=== PATIENT | male | born 1950 | race Caucasian/White ===

== ENCOUNTER 2023-06-30 07:19 | Outpatient (CLI) | payer MEDICARE, SELFPAY ==
--- NOTE | 2023-06-30 07:36 | ECHO_ITS ---
Patient Info Name: Tin Marshall Age: 72 years : 1950 Gender: Male Ht: 67 in Wt: 195 lbs BSA: 2.07 m2 HR: 72 bpm BP: 127 / 71 mmHg Technical Quality: Fair Exam Date: 06/30/2023 7:46 AM Exam Location: Echo Lab Patient Status: Outpatient Admit Date: 06/30/2023 Staff Ordering Physician: Cornel Pierson DO Attending Provider: Cornel Pierson DO Referring Physician: Dangelo CHARLES; Exam Type: CA echo doppler color flow Study Info Indications - CAD Complete two-dimensional, color flow and Doppler transthoracic echocardiogram is performed. Summary 1. Complete two-dimensional, color flow and Doppler transthoracic echocardiogram is performed. 2. Left ventricular chamber dimension is normal. 3. Left ventricular systolic function is normal, estimated at 60-65%. 4. The left ventricular diastolic function is grade I diastolic dysfunction. 5. E/e' 9 is minimally elevated. 6. There is mild aortic valve sclerosis. Left Ventricle E/e' 9 is minimally elevated. Left ventricular chamber dimension is normal. Left ventricular systolic function is normal, estimated at 60-65%. The left ventricular diastolic function is grade I diastolic dysfunction. Right Ventricle Right ventricular systolic function is normal and with normal TAPSE 2.4 cm. Right ventricular chamber dimension is normal. Left Atria Left atrial chamber dimension is normal. Right Atria Right atrial chamber dimension is normal. Aortic Valve The aortic valve is trileaflet. There is mild aortic valve sclerosis. There is no aortic valve stenosis. There is no aortic valve regurgitation. Pulmonic Valve There is no pulmonic regurgitation. Mitral Valve There is no mitral valve stenosis. There is no mitral valve regurgitation. Tricuspid Valve There is no tricuspid valve regurgitation. Pericardium/Pleural There is no pericardial effusion. Inferior Vena Cava Normal inferior vena cava with >50% collapse upon inspiration consistent with normal right atrial pressure, 5 mmHg. Aorta The aortic root size at the sinus of Valsalva is normal. Left Ventricular Outflow Tract Name Value Normal LVOT 2D LVOT Diameter 2.2 cm LVOT Doppler LVOT Peak Gradient 6 mmHg LVOT Mean Gradient 2 mmHg LVOT VTI 21 cm LVOT VTI/AV VTI Ratio 0.8 LVOT Stroke Volume 81 ml LVOT CO 5.6 l/min LVOT CI 2.7 l/min/m2 Pulmonic Valve Name Value Normal PV Doppler PV Peak Gradient 5 mmHg Mitral Valve Name Value Normal MV Doppler MV Peak Gradient
== END 2023-06-30 07:20 | disposition home or self-care (01) ==
LOC: ANHCARD 07:22
PROVIDERS: PCP Family Medicine; Visit Provider Internal Medicine Cardiovascular Disease
DX: I25.10 Atherosclerotic heart disease of native coronary artery without angina pectoris (principal); R93.1 Abnormal findings on diagnostic imaging of heart and coronary circulation; I35.8 Other nonrheumatic aortic valve disorders
CPT/HCPCS: 93306

== ENCOUNTER 2023-10-21 03:12 | Day surgery (SDC) | payer MEDICARE, SELFPAY ==
[2023-10-12 11:14] VITALS: BMI 29.5
[2023-10-21 09:11] VITALS: BP 129/71; PULSE 74; RESP 18; TEMP 36; O2SAT 99; BMI 29.6
[2023-10-21] MEDS: LACTATED RINGERS 1,000 ML 150 ML IV CONT (09:21)
[2023-10-21 09:24] LABS: Glucose Point of Care 188 mg/dl (65-105)
--- NOTE | 2023-10-21 09:51 | PM.HPGS ---
History of Present Illness History of Present Illness Consent: Risks, benefits, and alternatives have been discussed and questions answered. Patient agrees to proceed with procedure. Chief complaint: hx of colon polyps Narrative: Tin Marshall is a 73 year old male with colon polyps 9 years ago Review of Systems Review of Systems: All systems reviewed & are unremarkable except as noted in HPI and below [facility] Past Medical History Medical History (Updated 08/28/23 @ 10:01 by Rafa Del Castillo MD) Abdominal distension Acute non-recurrent maxillary sinusitis At low risk for fall At moderate risk for fall (~12/30/21) the patient fell off of a deck while prying up a board, Oct, 2021. BMI 29.0-29.9,adult BMI 30.0-30.9,adult BMI 31.0-31.9,adult COVID-19 (~06/08/22) tested positive 06/10/2022. 2nd episode positive 06/17/2023. Depression Diarrhea Dysphagia Emphysema lung (~07/30/20) noted on coronary artery CT scan 07/30/2020 Encounter for prostate cancer screening PSA 0.39 on 01/22/2023. Essential (primary) hypertension Fungal nail infection (12/11/20) great toenail bilateral GERD (gastroesophageal reflux disease) Grade I diastolic dysfunction (06/30/23) grade 1 diastolic dysfunction on echo on 06/30/2023. Ejection fraction 60-65%. Gustatory rhinitis Kyphoscoliosis deformity of spine Night sweats Obesity (BMI 30.0-34.9) Overweight (BMI 25.0-29.9) Peripheral arterial disease with history of revascularization Pulmonary nodule less than 1 cm in diameter with low risk for malignant neoplasm (07/30/20) Skin tag (~12/30/21) multiple skin tags about the neck irritated by clothing. Thoracic lymphadenopathy (~07/30/20) 1.4 cm samantha aortic node right lung Tobacco use disorder, continuous quit smoking December,. Visual disturbance changes in vision left eye with floaters Family History Family History Grandparent Family history of cardiovascular disease, Onset Age: 76 Father Acute myocardial infarction, Onset Age: 54 Mother Family history of malignant neoplasm Social History Social History Years smoked: 55 Smoking status: Former smoker Tobacco type: cigarettes Smoking end date: 12/20/21 Alcohol intake: never Substance use: former Substance use type: marijuana Lack of Transportation: No Lack of Food: Never True Current Housing: I Have Housing Concerned About Future Housing: No Difficulty Paying Gas/Electric Bills: No Difficulty Paying for Meds: No Currently Unemployed: No Education: Don't Know Difficulty w/ Childcare or Family Care: No Living arrangements: with family Spiritual care concerns: No Meds Home Medications and Allergies Home Medications Medication Instructions Recorded Confirmed Type aspirin 81 mg tablet,delayed 81 mg PO DAILY 04/29/19 10/21/23 History release (Adult Aspirin Regimen) cyanocobalamin (vitamin B-12) 1,000 mcg PO DAILY 04/29/19 10/21/23 History 1,000 mcg capsule rosuvastatin 20 mg tablet (Crestor) 20 mg PO DAILY 09/05/19 10/21/23 History coenzyme Q10 200 mg capsule 200 mg PO BID 02/21/20 10/21/23 History isosorbide mononitrate 60 mg 60 mg PO . b.i.d. 01/26/23 10/21/23 History tablet,extended release 24 hr carvedilol 6.25 mg tablet 6.25 mg PO BID #180 tabs 04/15/23 10/21/23 Rx clopidogrel 75 mg tablet 75 mg PO DAILY #90 tabs 04/15/23 10/21/23 Rx fenofibrate nanocrystallized 145 145 mg PO DAILY #90 tabs 04/15/23 10/21/23 Rx mg tablet glimepiride 4 mg tablet 4 mg PO QAM #90 tabs 04/15/23 10/21/23 Rx metformin 500 mg tablet,extended 1,000 mg PO BID #360 tabs 04/15/23 10/21/23 Rx release 24 hr cilostazol 100 mg tablet 100 mg PO BID 05/25/23 10/21/23 History lisinopril 10 mg tablet 10 mg PO DAILY #90 tabs 08/03/23 10/21/23 Rx dapagliflozin propanediol 10 mg 10 mg PO DAILY #90 tabs 09/29/23
[2023-10-21 10:15] VITALS: BP 108/68; PULSE 78; RESP 24; O2SAT 94
[2023-10-21 10:25] VITALS: BP 117/71; PULSE 72; RESP 20; O2SAT 94
[2023-10-21 10:35] VITALS: BP 119/70; PULSE 70; RESP 20; O2SAT 96
--- NOTE | 2023-10-23 11:30 | WPDANESEPPF ---
Anes - Initial Pre Proc Eval Procedure: Operation Date: 10/21/23 10:30 Proposed Procedures p Colonoscopy - Kobi Gong MD Date/Time: 10/23/23 11:30 Surgeon: Kobi Gong MD Pre Op Diagnosis: hx of colon polyps Patient Data Age: 73 Gender: M Height: 1.75 m Weight: 91 kg Last Vital Signs Temp 96.8 F L 10/21/23 09:11 Pulse 70 10/21/23 10:35 Resp 20 10/21/23 10:35 BP 119/70 10/21/23 10:35 Pulse Ox 96 10/21/23 10:35 O2 Del Method Room Air 10/21/23 10:35 Allergies Allergy/AdvReac Type Severity Reaction Status Date / Time Allergy Intermediate Hives on Uncoded 10/21/23 09:09 02/16/2019 Home Medications Medication Instructions Recorded Confirmed Type aspirin 81 mg tablet,delayed 81 mg PO DAILY 04/29/19 10/21/23 History release (Adult Aspirin Regimen) cyanocobalamin (vitamin B-12) 1,000 mcg PO DAILY 04/29/19 10/21/23 History 1,000 mcg capsule rosuvastatin 20 mg tablet (Crestor) 20 mg PO DAILY 09/05/19 10/21/23 History coenzyme Q10 200 mg capsule 200 mg PO BID 02/21/20 10/21/23 History isosorbide mononitrate 60 mg 60 mg PO . b.i.d. 01/26/23 10/21/23 History tablet,extended release 24 hr carvedilol 6.25 mg tablet 6.25 mg PO BID #180 tabs 04/15/23 10/21/23 Rx clopidogrel 75 mg tablet 75 mg PO DAILY #90 tabs 04/15/23 10/21/23 Rx fenofibrate nanocrystallized 145 145 mg PO DAILY #90 tabs 04/15/23 10/21/23 Rx mg tablet glimepiride 4 mg tablet 4 mg PO QAM #90 tabs 04/15/23 10/21/23 Rx metformin 500 mg tablet,extended 1,000 mg PO BID #360 tabs 04/15/23 10/21/23 Rx release 24 hr cilostazol 100 mg tablet 100 mg PO BID 05/25/23 10/21/23 History lisinopril 10 mg tablet 10 mg PO DAILY #90 tabs 08/03/23 10/21/23 Rx dapagliflozin propanediol 10 mg 10 mg PO DAILY #90 tabs 09/29/23 10/21/23 Rx tablet (Haga) Patient hx anesthesia problems: none Family hx anesthesia problems: none Results Review: All pre-operative results and documents have been reviewed as part of the pre-operative evaluation. [facility] Past Medical History Medical History (Updated 10/23/23 @ 07:45 by Rafa Del Castillo MD) Abdominal distension Acute non-recurrent maxillary sinusitis At low risk for fall At moderate risk for fall (~12/30/21) the patient fell off of a deck while prying up a board, Oct, 2021. BMI 29.0-29.9,adult BMI 30.0-30.9,adult BMI 31.0-31.9,adult COVID-19 (~06/08/22) tested positive 06/10/2022. 2nd episode positive 06/17/2023. Depression Diarrhea Dysphagia Emphysema lung (~07/30/20) noted on coronary artery CT scan 07/30/2020 Encounter for prostate cancer screening PSA 0.39 on 01/22/2023. Essential (primary) hypertension Fungal nail infection (12/11/20) great toenail bilateral GERD (gastroesophageal reflux disease) Grade I diastolic dysfunction (06/30/23) grade 1 diastolic dysfunction on echo on 06/30/2023. Ejection fraction 60-65%. Gustatory rhinitis Kyphoscoliosis deformity of spine Night sweats Obesity (BMI 30.0-34.9) Overweight (BMI 25.0-29.9) Peripheral arterial disease with history of revascularization Pulmonary nodule less than 1 cm in diameter with low risk for malignant neoplasm (07/30/20) Skin tag (~12/30/21) multiple skin tags about the neck irritated by clothing. Thoracic lymphadenopathy (~07/30/20) 1.4 cm samantha aortic node right lung Tobacco use disorder, continuous quit smoking December,. Visual disturbance changes in vision left eye with floaters Family History Family History Grandparent Family history of cardiovascular disease, Onset Age: 76 Father Acute myocardial infarction, Onset Age: 54 Mother Family history of malignant neoplasm Social History Social History Years smoked: 55 Smoking status: Former smoker Tobacco type: cigarettes Smoking end date: 12/20/
== END 2023-10-21 10:37 | disposition home or self-care (01) ==
PROVIDERS: PCP Family Medicine; Visit Provider Internal Medicine Gastroenterology
PROC: 0DJD8ZZ Inspection of Lower Intestinal Tract, Via Natural or Artificial Opening Endoscopic (ICD-10-PCS; CPT 45378; principal; 2023-10-21 10:30)
DX: Z12.11 Encounter for screening for malignant neoplasm of colon (principal); D12.2 Benign neoplasm of ascending colon; D12.3 Benign neoplasm of transverse colon; D12.5 Benign neoplasm of sigmoid colon; J43.9 Emphysema, unspecified; K21.9 Gastro-esophageal reflux disease without esophagitis; F32.A Depression, unspecified; I11.9 Hypertensive heart disease without heart failure; I73.9 Peripheral vascular disease, unspecified; Z87.891 Personal history of nicotine dependence; Z79.82 Long term (current) use of aspirin; Z79.84 Long term (current) use of oral hypoglycemic drugs; E66.9 Obesity, unspecified; Z68.29 Body mass index [BMI] 29.0-29.9, adult
CPT/HCPCS: 45385; 82948; 88305; J2704; J7120

== ENCOUNTER 2024-01-19 14:29 | Outpatient (RCR) | payer MEDICARE, SELFPAY | END 2024-04-11 10:26 | disposition home or self-care (01) | LOC: ANHDMC 14:29 | PROVIDERS: PCP Family Medicine; Visit Provider Internal Medicine Endocrinology, Diabetes & Metabolism | DX: E11.65 Type 2 diabetes mellitus with hyperglycemia (principal); Z71.89 Other specified counseling | CPT/HCPCS: G0108 ==

== ENCOUNTER 2024-04-07 00:39 | Day surgery (SDC) | payer MEDICARE, SELFPAY ==
[2024-03-31 09:43] VITALS: BMI 28.7
--- NOTE | 2024-03-31 09:48 | PC.NURSE ---
Report to the Outpatient Waiting Room, entrance under the green pavilion located off [facility], at time _0915_ on date _[id number]_. Planned Procedure Time: _1115_.? Time changes happen often and if your time is changed the preop area will call you the afternoon before. - You and your visitor will be asked to self-screen and do not enter if you have any COVID symptoms. Please call surgeon if you need to reschedule. - A mask is optional within the hospital at this time. May have clear liquids (water, carbonated beverages, clear teas, apple juice) until 215am with a maximum of 20 ounces. Nothing to drink after 215am. - No food from midnight until time of surgery and no smoking Take only the following medications with a SIP of water on the morning of surgery: _Carvidilol and Isosorbide. DO NOT STOP ANY OF YOUR OTHER PRESCRIPTION MEDICATIONS PRIOR TO SURGERY EXCEPT THE FOLLOWING Medications to discontinue per physician ___Please call Dr Corbin's office and ask about stopping aspirin and clopedgrel. Please no make-up, nail bahamian, hairspray, perfume, deodorant, or body powder the day of surgery.? No jewelry (including any body piercings) or valuables the day of surgery, leave them at home.? Please take a shower or bath the night before, or the morning of, surgery with an antibacterial soap.? Wear comfortable, loose fitting clothing.? - Jewelry must be removed prior to entering the operating room.? Rings and piercings that are not removed may be cut off. - The hospital will not accept responsibility for valuables.? - Please leave all valuables, including medications, at home the day of surgery. If you are going home after surgery, a licensed local driver must drive you home.? - NO public transportation without another adult if you receive anesthesia. - We recommend that an adult stay with you for 24 hours following discharge. - We also recommend that you do not drive, make important decision, drink alcoholic beverages, or take any drugs that were not prescribed by your health care provider for at least 24 hours after your discharge time. Follow any additional instructions given to you from your surgeon. Telephone instructions given to __Frank__and asked if any additional questions and then verbalized understanding. Patient advised to call surgeon office or pre surgery nurse liaison [phone] if any additional questions.
[2024-04-07 06:30] VITALS: BP 113/58; PULSE 79; RESP 20; TEMP 36.1; O2SAT 98; BMI 28.3
[2024-04-07] MEDS: LACTATED RINGERS 1,000 ML 30 ML IV CONT (06:30)
[2024-04-07 06:45] LABS: Glucose Point of Care 118 mg/dl (65-105)
--- NOTE | 2024-04-07 06:49 | WPDANESEPPF ---
Anes - Initial Pre Proc Eval Procedure: Operation Date: 04/07/24 08:15 Proposed Procedures p Left Ring Finger Fasciectomy - Ana María Corbin MD Date/Time: 04/07/24 06:49 Surgeon: Ana María Corbin MD Pre Op Diagnosis: palmar fascial fibromatosis Patient Data Age: 73 Gender: M Height: 1.75 m Weight: 88.2 kg Allergies Allergy/AdvReac Type Severity Reaction Status Date / Time Sulfa (Sulfonamide Allergy Intermediate Hives Verified 04/05/24 09:03 Antibiotics) Home Medications Medication Instructions Recorded Confirmed Type aspirin 81 mg tablet,delayed 81 mg PO DAILY 04/29/19 04/05/24 History release (Adult Aspirin Regimen) cyanocobalamin (vitamin B-12) 1,000 mcg PO DAILY 04/29/19 04/05/24 History 1,000 mcg capsule coenzyme Q10 200 mg capsule 200 mg PO BID 02/21/20 04/05/24 History carvedilol 6.25 mg tablet 6.25 mg PO BID #180 tabs 04/15/23 04/05/24 Rx clopidogrel 75 mg tablet 75 mg PO DAILY #90 tabs 04/15/23 04/05/24 Rx fenofibrate nanocrystallized 145 145 mg PO DAILY #90 tabs 04/15/23 04/05/24 Rx mg tablet metformin 500 mg tablet,extended 1,000 mg PO BID #360 tabs 04/15/23 04/05/24 Rx release 24 hr lisinopril 10 mg tablet 10 mg PO DAILY #90 tabs 08/03/23 04/05/24 Rx dapagliflozin propanediol 10 mg 10 mg PO DAILY #90 tabs 09/29/23 04/05/24 Rx tablet (Farxiga) cilostazol 100 mg tablet 100 mg PO BID #60 tabs 11/30/23 04/05/24 Rx rosuvastatin 20 mg tablet (Crestor) 20 mg PO DAILY #30 tabs 11/30/23 04/05/24 Rx isosorbide mononitrate 60 mg 60 mg PO BID 03/31/24 04/05/24 History tablet,extended release 24 hr ergocalciferol (vitamin D2) 1,250 1,250 mcg PO WEEKLY 14 weeks #14 04/06/24 Rx mcg (50,000 unit) capsule (Drisdol) caps Laboratory Tests 04/07/24 06:41 POC Capillary Glucose 118 H mg/dl (65-105) Patient hx anesthesia problems: none Family hx anesthesia problems: none Results Review: All pre-operative results and documents have been reviewed as part of the pre-operative evaluation. [facility] Past Medical History Medical History Abdominal distension Acute non-recurrent maxillary sinusitis At low risk for fall At moderate risk for fall (~12/30/21) the patient fell off of a deck while prying up a board, Oct, 2021. BMI 29.0-29.9,adult BMI 30.0-30.9,adult BMI 31.0-31.9,adult COVID-19 (~06/08/22) tested positive 06/10/2022. 2nd episode positive 06/17/2023. Depression Diarrhea Dysphagia Emphysema lung (~07/30/20) noted on coronary artery CT scan 07/30/2020 Encounter for prostate cancer screening PSA 0.39 on 01/22/2023. Essential (primary) hypertension Fungal nail infection (12/11/20) great toenail bilateral GERD (gastroesophageal reflux disease) Grade I diastolic dysfunction (06/30/23) grade 1 diastolic dysfunction on echo on 06/30/2023. Ejection fraction 60-65%. Gustatory rhinitis Kyphoscoliosis deformity of spine Night sweats Obesity (BMI 30.0-34.9) Overweight (BMI 25.0-29.9) Peripheral arterial disease with history of revascularization Pulmonary nodule less than 1 cm in diameter with low risk for malignant neoplasm (07/30/20) Screening for diabetic retinopathy no retinopathy on 12/21/2023. Skin tag (~12/30/21) multiple skin tags about the neck irritated by clothing. Thoracic lymphadenopathy (~07/30/20) 1.4 cm samantha aortic node right lung Tobacco use disorder, continuous quit smoking December,. Visual disturbance changes in vision left eye with floaters Surgical History Surgical History (Updated 04/07/24 @ 06:49 by Eduardo Ladd MD) Stented coronary artery Family History Family History Grandparent Family history of cardiovascular disease, Onset Age: 76 Father Acute myocardial infarction, Onset Age: 54 Mother Family history of malignant neoplasm Social History Social History (Reviewed
--- NOTE | 2024-04-07 06:58 | WPDHPUPDATE1 ---
History and Physical Update Update Date/Time: 04/07/24 06:58 Patient seen and examined in pre-operative holding area. No interval change in medical history or symptoms. Patient recalls previous discussion of benefits and alternatives to procedure. Continues to desire to proceed with left ring finger fasciectomy. Reviewed procedure, post-op expectations and risks including but not limited to bleeding, infection, injury to tendon/nerve/vessel, decreased hand function, stiffness, RSD, no change or worsening of symptoms, recurrence, incomplete release. I discussed the possible use of assistants and their participation in the case. Patient stated understanding and signed the consent form wishing to proceed.
--- NOTE | 2024-04-07 06:58 | W.PM.PROC2 ---
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 The patient signed the consent form. PROCEDURE IN DETAIL:The patient taken back to OR on the stretcher in supine position. Time out performed with anesthesia, surgeon and staff agreeing on patient's name site and surgery to be performed SCDs were placed on the lower extremities and inflated. A tourniquet was placed on {left} upper extremity and antibiotics given IV After anesthesia administered sedation I injected {4}cc 1%lido and 0.5% marcaine plain at the operative site The?{left upper extremity}?was prepped and draped in sterile fashion the??{left upper extremity} was? exsanguinated with Esmarch bandage and tourniquet inflated to 250mmHg I proceeded with making a longitudinal incision over the proximal aspect of the left ring finger cord starting in the palm proximal to the distal palmar crease going distally across the PIP joint and going obliquely across flexion creases with Anny style incision with a 15 blade scalpel. This was done through skin and dermis. I elevated skin flaps proximally and identified the central fascial cord spreading with Littler scissors to circumferentially dissect around the cord near its origin. I proceeded with transection of the cord at this proximal area and then proceeded with anterograde dissection of the cord until I was able to achieve full release of the MP and PIP joints. The neurovascular bundles were identified and protected throughout the procedure. I irrigated with normal saline and closed with 4-0 chromic suture. A dressing of xeroform, 4x4, driss, and an ulnar gutter splint was applied for patient safety, security, and comfort and secured with an joan bandage after the tourniquet was let down noting the hand was warm and well perfused. The patient was then awaken from anesthesia and transferred to the recovery room in stable condition.? Complications - none EBL- 0cc Disposition - home in stable conditions Aura Lee PA-C was essential for positioning, retraction, closure and dressing placement [facility] – [place] Billing Surgery - Charge Forward: Surgery Billing ([id number] for aura)
[2024-04-07] MEDS: ceFAZolin 2 GM/D5W 50 ML 2 GM/50 ML BAG IVPB (08:11)
[2024-04-07] MEDS: LIDOCAINE HCL 1% LOCAL INJ 10 ML VIAL 20 ML INFILTRATE (08:29)
[2024-04-07 08:40] VITALS: BP 99/56; PULSE 89; RESP 15; O2SAT 98
[2024-04-07 08:47] LABS: Glucose Point of Care 109 mg/dl (65-105)
[2024-04-07 09:10] VITALS: BP 92/50; PULSE 72; RESP 20
[2024-04-07 09:30] VITALS: BP 95/46; PULSE 68; RESP 20
== END 2024-04-07 09:34 | disposition home or self-care (01) ==
PROVIDERS: PCP Family Medicine; Visit Provider Plastic Surgery
PROC: (CPT 26045; principal; 2024-04-07 08:15)
DX: M72.0 Palmar fascial fibromatosis [Dupuytren] (principal); F32.A Depression, unspecified; J43.9 Emphysema, unspecified; K21.9 Gastro-esophageal reflux disease without esophagitis; I11.9 Hypertensive heart disease without heart failure; I73.9 Peripheral vascular disease, unspecified; F12.90 Cannabis use, unspecified, uncomplicated; E66.9 Obesity, unspecified; Z68.28 Body mass index [BMI] 28.0-28.9, adult; Z79.82 Long term (current) use of aspirin; Z79.02 Long term (current) use of antithrombotics/antiplatelets; Z79.84 Long term (current) use of oral hypoglycemic drugs; Z98.890 Other specified postprocedural states; Z95.5 Presence of coronary angioplasty implant and graft; Z87.891 Personal history of nicotine dependence; Z80.9 Family history of malignant neoplasm, unspecified; Z82.49 Family history of ischemic heart disease and other diseases of the circulatory system
CPT/HCPCS: 26123; 82948; 88309; 88311; J0690; J2003; J2371; J2405; J2704; J3010; J7120